=== PATIENT | female | born 1955 | race Caucasian/White ===

== ENCOUNTER 2019-07-28 17:54 | Inpatient (IN) | payer MEDICAID ==
[~2019-07-28] VITALS: Ht 165.1 cm; Wt 68.2 kg
[~2019-07-28 17:54] MED LIST: ALBU6.7H9 INH; ATEN25TA PO; MECL-111 PO; SIMV-42 PO; SIMV-45 PO
[2019-07-28 18:37] LABS: BASOPHILS # (AUTO) 0.1 X10'3 (0-0.2); BASOPHILS % (AUTO) 0.7 % (0-1); EOSINOPHILS # (AUTO) 0.3 X10'3 (0-0.9); EOSINOPHILS % (AUTO) 2.7 % (0-6); HEMATOCRIT 36.8 % (35.0-45.0); HEMOGLOBIN 12.2 g/dl (12.0-16.0); LYMPHOCYTES # (AUTO) 2.2 X10'3 (1.1-4.8); LYMPHOCYTES % (AUTO) 24.2 % (21-51); MEAN CORPUSCULAR HEMOGLOBIN 30.3 PG (27.0-31.0); MEAN CORPUSCULAR HGB CONC 33.1 g/dL (33.0-36.5); MEAN CORPUSCULAR VOLUME 91.5 FL (78-98); MEAN PLATELET VOLUME 8.6 FL (7.4-10.4); MONOCYTES # (AUTO) 0.6 X10'3 (0-0.9); MONOCYTES % (AUTO) 6.6 % (2-12); NEUTROPHILS # (AUTO) 6.1 X10'3 (1.8-7.7); NEUTROPHILS % (AUTO) 65.8 % (42-75); PLATELET COUNT 263 X10'3 (140-440); RED BLOOD COUNT 4.02 X10'6 (4.20-5.60); RED CELL DISTRIBUTION WIDTH 13.3 % (11.5-14.5); WHITE BLOOD COUNT 9.3 X10'3 (4.5-11.0)
[2019-07-28 18:46] LABS: ALANINE AMINOTRANSFERASE 11 U/L (12-78); ALBUMIN 3.7 G/DL (3.4-5.0); ALBUMIN/GLOBULIN RATIO 0.8 (1.1-1.5); ALKALINE PHOSPHATASE 75 IU/L (46-116); ANION GAP 7 (8-16); ASPARTATE AMINO TRANSFERASE 16 U/L (10-37); BILIRUBIN,TOTAL 0.4 MG/DL (0.1-1.0); BLOOD UREA NITROGEN 52 MG/DL (7-18); BUN/CREATININE RATIO 13.3 (6.6-38.0); CALCIUM 9.6 MG/DL (8.5-10.1); CHLORIDE 103 MMOL/L (99-107); CREATININE 3.91 MG/DL (0.40-0.90); GLUCOSE 88 MG/DL (70-104); POTASSIUM 4.4 MMOL/L (3.5-5.1); SODIUM 137 MMOL/L (135-145); TOTAL CARBON DIOXIDE 26.7 MMOL/L (24-32); TOTAL PROTEIN 8.2 G/DL (6.4-8.2); eGFR 12 ML/MIN
[2019-07-28] MEDS ORDERED: aspirin 81mg tab.chew PO ONE (18:55)
[2019-07-28] MEDS ORDERED: enoxaparin 100mg/ml syringe SUBCUT ONE (18:55)
[2019-07-28] MEDS ORDERED: nitroGLYCERIN 0.4mg SUBLingual tab SL PRN (18:55)
[2019-07-28] MEDS ORDERED: atorvastatin 20mg tablet PO SCH (19:05)
[2019-07-28] MEDS ORDERED: atorvastatin 20mg tablet PO ONE (19:05)
[2019-07-28] MEDS ORDERED: mag hydrox/Alum hydrox/simeth 30ml oral suspension PO PRN (19:55)
[2019-07-28] MEDS ORDERED: ondansetron/PF 4mg/2ml inj IV PRN (19:55)
[2019-07-28] MEDS ORDERED: magnesium hydroxide 30ml (MOM) UD suspension PO PRN (19:55)
[2019-07-28] MEDS ORDERED: acetaminophen 325mg tablet PO PRN ×2 (19:55)
--- NOTE | 2019-07-28 20:19 | NUR ---
Patient in room ED 11. I have received report from RUTHIE Miller and had the opportunity to ask questions and assume patient care. Awaiting patient arrival to room 3014I.
[2019-07-28 20:30] VITALS: BP 138/83
--- NOTE | 2019-07-28 21:31 | NUR ---
CRITICAL [address] OLIVAS NOTIFIED AND NO NEW ORDERS AT THIS TIME. PLEASE REFER TO CRITICAL RESULTS ON INTERVENTIONS FOR FURTHER DETAIL. WILL CONTINUE TO MONITOR CLOSELY.
[2019-07-28] MEDS: normal saline 1000ml 1,000 ML IV SCH (21:59)
[2019-07-28 23:00] VITALS: BP 106/67
[2019-07-29 01:00] LABS: BASOPHILS % (AUTO) 0.3 % (0-1); EOSINOPHILS # (AUTO) 0.4 X10'3 (0-0.9); EOSINOPHILS % (AUTO) 3.9 % (0-6); HEMATOCRIT 34.7 % (35.0-45.0); HEMOGLOBIN 11.6 g/dl (12.0-16.0); LYMPHOCYTES # (AUTO) 3.1 X10'3 (1.1-4.8); LYMPHOCYTES % (AUTO) 33.1 % (21-51); MEAN CORPUSCULAR HEMOGLOBIN 30.1 PG (27.0-31.0); MEAN CORPUSCULAR HGB CONC 33.4 g/dL (33.0-36.5); MEAN PLATELET VOLUME 8.7 FL (7.4-10.4); MONOCYTES # (AUTO) 0.6 X10'3 (0-0.9); MONOCYTES % (AUTO) 5.9 % (2-12); NEUTROPHILS # (AUTO) 5.3 X10'3 (1.8-7.7); NEUTROPHILS % (AUTO) 56.8 % (42-75); PLATELET COUNT 219 X10'3 (140-440); RED BLOOD COUNT 3.86 X10'6 (4.20-5.60); RED CELL DISTRIBUTION WIDTH 13.4 % (11.5-14.5); WHITE BLOOD COUNT 9.4 X10'3 (4.5-11.0)
--- NOTE | 2019-07-29 01:00 | NUR ---
CRITICAL 6 HR TROPONIN 2.52- TRENDING DOWN FROM 2.87. DR. OLIVAS NOTIFIED AND NO NEW ORDERS AT THIS TIME. PATIENT IS STABLE WITH NO COMPLAINTS OF CP SINCE ADMIT TO FLOOR 07/28 AT 2029. WILL CONTINUE TO MONITOR CLOSELY.
[2019-07-29 01:12] LABS: ALBUMIN 3.3 G/DL (3.4-5.0); ANION GAP 11 (8-16); BLOOD UREA NITROGEN 52 MG/DL (7-18); BUN/CREATININE RATIO 13.8 (6.6-38.0); CALCIUM 9.7 MG/DL (8.5-10.1); CHLORIDE 107 MMOL/L (99-107); CREATININE 3.77 MG/DL (0.40-0.90); GLUCOSE 104 MG/DL (70-104); POTASSIUM 4.8 MMOL/L (3.5-5.1); SODIUM 140 MMOL/L (135-145); TOTAL CARBON DIOXIDE 21.9 MMOL/L (24-32); eGFR 12 ML/MIN
[2019-07-29 02:55] VITALS: BP 123/74
[2019-07-29] MEDS: normal saline 1000ml 1,000 ML IV SCH ×2 (05:54→16:47)
[2019-07-29 06:00] VITALS: BP 110/71
--- NOTE | 2019-07-29 06:25 | NUR ---
Problems reprioritized. Patient report given, questions answered & plan of care reviewed with Praveena RN and RUTHIE Duong.
--- NOTE | 2019-07-29 06:38 | NUR ---
Patient in room PCU 3016A. I have received report from Nathan HENDRICKS and had the opportunity to ask questions and assume patient care.
[2019-07-29] MEDS ORDERED: enoxaparin 100mg/ml syringe SUBCUT SCH (08:00)
[2019-07-29] MEDS ORDERED: atorvastatin 10mg tablet PO SCH ×2 (08:00→11:16)
[2019-07-29] MEDS: aspirin 81mg tablet.DR PO SCH (08:20)
[2019-07-29 08:43] LABS: URINE AMPHETAMINE SCREEN NEGATIVE (Neg); URINE BARBITUATE SCREEN NEGATIVE (Neg); URINE BENZODIAZEPINES SCREEN NEGATIVE (Neg); URINE CANNABINOID SCREEN NEGATIVE (Neg); URINE COCAINE SCREEN NEGATIVE (Neg); URINE METHADONE SCREEN NEGATIVE (Neg); URINE OPIATE SCREEN NEGATIVE (Neg); URINE PHENCYCLIDINE SCREEN NEGATIVE (Neg)
[2019-07-29 10:24] LABS: CHOL/HDL RATIO 5.3 (0.00-4.99); CHOLESTEROL 153 MG/DL (0-200); HDL CHOLESTEROL 29 MG/DL (35-60); LDL CHOLESTEROL 103 MG/DL (50-100); TRIGLYCERIDES 203 MG/DL (20-135)
[2019-07-29 11:00] VITALS: BP 112/73
--- NOTE | 2019-07-29 11:00 | NUR ---
Spoke to Destiny Olivarez regarding possible laborer chicken farm. Patient will not go to laborer chicken farm until tomorrow,07/30. We are to let patient eat and not make NPO until told to by MD Destiny, or cardiology.
[2019-07-29] MEDS: atenolol 25mg tablet PO SCH (11:42)
--- NOTE | 2019-07-29 11:55 | NUR ---
Per Destiny Olivarez, patient will go to poultry hatchery laborer at 6:30 AM on07/30. Pt will be NPO at midnight
--- NOTE | 2019-07-29 12:21 | NUR ---
Paged PICC nurse again for IV placement. Patient has AC fieldstart and is refusing further attempts. Pt is a hard stick and has a very large fear of needles and said she said she would accept further IV attempts with ultrasound guidance from PICC nurse Earlene Kauffman [id number]. When you have time can you please come place PIV in patient? Going to geophysical laboratory supervisor in AM and refusing IV attempt without ultrasound. Thank you!
--- NOTE | 2019-07-29 12:35 | NUR ---
Paged echo for order that was placed by Dr Schrader: "RE Earlene Kohli [id number]. Echo ordered early this AM for pt, wanted to follow up on ETA. Thank you!" Keily called back and will come to echo at 1315.
[2019-07-29 15:00] VITALS: BP 121/76
--- NOTE | 2019-07-29 18:15 | NUR ---
Problems reprioritized. Patient report given, questions answered & plan of care reviewed with Eliecer HENDRICKS.
--- NOTE | 2019-07-29 18:16 | NUR ---
New hire documentation: I have reviewed and agree with all interventions, assessments performed and documented by Rhoda HENDRICKS.
--- NOTE | 2019-07-29 18:19 | NUR ---
Patient in room PCU 3016. I have received report from Praveena HENDRICKS and had the opportunity to ask questions and assume patient care.
[2019-07-29 18:30] VITALS: BP 120/77
[2019-07-29] MEDS: acetylcysteine 200 MG/ml 4ml vial PO SCH (19:43)
[2019-07-29 22:22] VITALS: BP 132/78
[2019-07-30] VITALS (15 sets, daily range): BP systolic 124–160; BP diastolic 66–94
[2019-07-30] MEDS: normal saline 1000ml 1,000 ML IV SCH ×2 (02:45→12:19)
[2019-07-30 05:28] LABS: BASOPHILS # (AUTO) 0.1 X10'3 (0-0.2); BASOPHILS % (AUTO) 0.8 % (0-1); EOSINOPHILS # (AUTO) 0.3 X10'3 (0-0.9); EOSINOPHILS % (AUTO) 4.5 % (0-6); HEMATOCRIT 32.3 % (35.0-45.0); LYMPHOCYTES # (AUTO) 2.4 X10'3 (1.1-4.8); LYMPHOCYTES % (AUTO) 34.1 % (21-51); MEAN CORPUSCULAR HEMOGLOBIN 30.8 PG (27.0-31.0); MEAN CORPUSCULAR VOLUME 90.8 FL (78-98); MEAN PLATELET VOLUME 8.5 FL (7.4-10.4); MONOCYTES # (AUTO) 0.5 X10'3 (0-0.9); MONOCYTES % (AUTO) 7.1 % (2-12); NEUTROPHILS # (AUTO) 3.8 X10'3 (1.8-7.7); NEUTROPHILS % (AUTO) 53.5 % (42-75); PLATELET COUNT 219 X10'3 (140-440); RED BLOOD COUNT 3.56 X10'6 (4.20-5.60); RED CELL DISTRIBUTION WIDTH 13.5 % (11.5-14.5); WHITE BLOOD COUNT 7.2 X10'3 (4.5-11.0)
[2019-07-30 05:38] LABS: ANION GAP 11 (8-16); BLOOD UREA NITROGEN 52 MG/DL (7-18); BUN/CREATININE RATIO 15.3 (6.6-38.0); CALCIUM 9.2 MG/DL (8.5-10.1); CHLORIDE 109 MMOL/L (99-107); GLUCOSE 90 MG/DL (70-104); POTASSIUM 4.8 MMOL/L (3.5-5.1); SODIUM 141 MMOL/L (135-145); TOTAL CARBON DIOXIDE 21.3 MMOL/L (24-32); eGFR 14 ML/MIN
[2019-07-30] MEDS ORDERED: LIDOcaine 1% (10mg/ml)w/preservative injection 20ml MDV ONE (06:06)
[2019-07-30] MEDS ORDERED: iohexol 350MG/ML 100ml bottle IV ONE (06:06)
[2019-07-30] MEDS ORDERED: midazolam 2 mg/2 ml injection ONE ×2 (06:06→06:32)
[2019-07-30] MEDS ORDERED: fentaNYL/PF 50MCG/1 ML 2ML syringe ONE (06:06)
--- NOTE | 2019-07-30 06:26 | NUR ---
Problems reprioritized. Patient report given, questions answered & plan of care reviewed with Paige RN.
--- NOTE | 2019-07-30 06:26 | NUR ---
[place] documentation: I have reviewed and agree with all interventions, assessments performed and documented by Eliecer HENDRICKS.
[2019-07-30] MEDS ORDERED: heparin 1,000unit/ml 10ml vial 10 ML ONE (06:43)
--- NOTE | 2019-07-30 06:43 | NUR ---
Patient in room PCU 3020. I have received report from Eliecer RN and RUTHIE Snigh and had the opportunity to ask questions and assume patient care.
[2019-07-30] MEDS ORDERED: ticagrelor 90mg tablet ONE (06:51)
[2019-07-30] MEDS: aspirin 81mg tablet.DR PO SCH (08:00)
[2019-07-30] MEDS ORDERED: HYDROcodone/acetaminophen 5mg/325mg tablet PO PRN (08:15)
--- NOTE | 2019-07-30 08:19 | NUR ---
ASA held due to post catheterization
[2019-07-30] MEDS ORDERED: proCHLORperazine 10 MG/2 ml inj IV PRN (08:20)
[2019-07-30] MEDS ORDERED: OXAZEpam 15mg capsule PO PRN (08:20)
[2019-07-30] MEDS ORDERED: HYDROcodone/acetaminophen 10/325mg tab PO PRN (08:20)
[2019-07-30] MEDS: acetylcysteine 200 MG/ml 4ml vial PO SCH ×2 (08:24→19:52)
[2019-07-30] MEDS: atenolol 25mg tablet PO SCH (08:24)
[2019-07-30] MEDS: atorvastatin 10mg tablet PO SCH (08:26)
--- NOTE | 2019-07-30 12:21 | NUR ---
Sent to Dr Childers PAGER ID: [phone] MESSAGE: RE: Kim Kohli [id number]. Pt states she's having difficulty breathing. O2 sat @ 96% on RA. No PRN breathing Tx. -Paige [phone]
--- NOTE | 2019-07-30 12:58 | NUR ---
Sent to Dr Childers PAGER ID: [phone] MESSAGE: RE: Kim Kohli [id number]. RT states she believes the pt may be experiencing anxiety. Also, she has not had any nicotine since admitted. RT does not believe the pt needs albuterol. Please advise. -Paige [phone]
[2019-07-30] MEDS: albuterol 2.5 MG/3 ML nebule NEB PRN (13:04)
[2019-07-30] MEDS ORDERED: LORazepam 0.5 MG tablet PO PRN (13:30)
[2019-07-30] MEDS: nicotine 14mg patch - 24hr TD SCH (13:31)
--- NOTE | 2019-07-30 18:29 | NUR ---
Problems reprioritized. Patient report given, questions answered & plan of care reviewed with RUTHIE Anderson.
[2019-07-30] MEDS: ticagrelor 90mg tablet PO SCH (19:52)
[2019-07-31 03:00] VITALS: BP 121/60
[2019-07-31 05:14] LABS: BASOPHILS # (AUTO) 0.1 X10'3 (0-0.2); EOSINOPHILS # (AUTO) 0.3 X10'3 (0-0.9); EOSINOPHILS % (AUTO) 3.2 % (0-6); HEMOGLOBIN 10.8 g/dl (12.0-16.0); LYMPHOCYTES # (AUTO) 1.7 X10'3 (1.1-4.8); LYMPHOCYTES % (AUTO) 21.2 % (21-51); MEAN CORPUSCULAR HEMOGLOBIN 30.4 PG (27.0-31.0); MEAN CORPUSCULAR HGB CONC 33.8 g/dL (33.0-36.5); MEAN PLATELET VOLUME 8.8 FL (7.4-10.4); MONOCYTES # (AUTO) 0.5 X10'3 (0-0.9); MONOCYTES % (AUTO) 6.4 % (2-12); NEUTROPHILS # (AUTO) 5.6 X10'3 (1.8-7.7); NEUTROPHILS % (AUTO) 68.2 % (42-75); PLATELET COUNT 219 X10'3 (140-440); RED BLOOD COUNT 3.55 X10'6 (4.20-5.60); RED CELL DISTRIBUTION WIDTH 13.3 % (11.5-14.5); WHITE BLOOD COUNT 8.2 X10'3 (4.5-11.0)
[2019-07-31 05:30] LABS: ALBUMIN 3.1 G/DL (3.4-5.0); ANION GAP 13 (8-16); BLOOD UREA NITROGEN 47 MG/DL (7-18); BUN/CREATININE RATIO 14.5 (6.6-38.0); CALCIUM 9.4 MG/DL (8.5-10.1); CHLORIDE 109 MMOL/L (99-107); CREATININE 3.24 MG/DL (0.40-0.90); GLUCOSE 91 MG/DL (70-104); POTASSIUM 4.7 MMOL/L (3.5-5.1); SODIUM 142 MMOL/L (135-145); TOTAL CARBON DIOXIDE 20.5 MMOL/L (24-32); eGFR 14 ML/MIN
[2019-07-31 06:00] VITALS: BP 138/71
--- NOTE | 2019-07-31 06:12 | NUR ---
Patient in room PCU 3016. I have received report from Lauren HENDRICKS and had the opportunity to ask questions and assume patient care.
--- NOTE | 2019-07-31 06:17 | NUR ---
Problems reprioritized. Patient report given, questions answered & plan of care reviewed with Javon HENDRICKS.
[2019-07-31] MEDS: aspirin 81mg tablet.DR PO SCH (07:15)
[2019-07-31] MEDS: atenolol 25mg tablet PO SCH (07:15)
[2019-07-31] MEDS: ticagrelor 90mg tablet PO SCH (07:15)
[2019-07-31] MEDS: atorvastatin 10mg tablet PO SCH (07:16)
[2019-07-31] MEDS: acetylcysteine 200 MG/ml 4ml vial PO SCH (07:16)
[2019-07-31] MEDS: nicotine 14mg patch - 24hr TD SCH (07:16)
[2019-07-31] MEDS: normal saline 1000ml 1,000 ML IV SCH (07:27)
[2019-07-31] MEDS: albuterol 2.5 MG/3 ML nebule NEB PRN (07:50)
[2019-07-31] MEDS ORDERED: ATOR10TA PO (10:51)
[2019-07-31] MEDS ORDERED: NITR0.4T51 SL (10:51)
[2019-07-31] MEDS ORDERED: NICO-631 TD (10:51)
[2019-07-31] MEDS ORDERED: ASPI-1071 PO (10:51)
[2019-07-31] MEDS ORDERED: TICA90TA PO (10:51)
--- NOTE | 2019-07-31 12:28 | NUR ---
Pt is stable for discharge per md order, Discharge instructions reviewed w/ pt and all questions answered, new med prescription called in to [facility], pt refused to have us set up follow up appt and will call herself, Tele monitor 37 removed and returned, PIV dc'ed and clean dry dressing in place, Pt is discharged at 1210 from unit, wheeled down to lobby with hospital staff, pt discharged to home w/ family in private vehicle, all belongings w/ pt at time of discharge.
== END 2019-07-31 12:10 | disposition home or self-care (01) | DRG 174 ==
LOC: ER 17:55 → ED HOLD 20:01 → PCU 3S 20:25
PROVIDERS: ADMIT Hospitalist; ATTEND Family Medicine
PROC: 4A023N7 Measurement of Cardiac Sampling and Pressure, Left Heart, Percutaneous Approach (ICD-10-PCS; principal; 2019-07-30)
PROC: 027034Z Dilation of Coronary Artery, One Artery with Drug-eluting Intraluminal Device, Percutaneous Approach (ICD-10-PCS; 2019-07-30)
PROC: B2111ZZ Fluoroscopy of Multiple Coronary Arteries using Low Osmolar Contrast (ICD-10-PCS; 2019-07-30)
PROC: B2151ZZ Fluoroscopy of Left Heart using Low Osmolar Contrast (ICD-10-PCS; 2019-07-30)
DX: I21.4 Non-ST elevation (NSTEMI) myocardial infarction (principal); N18.4 Chronic kidney disease, stage 4 (severe); E78.5 Hyperlipidemia, unspecified; F17.210 Nicotine dependence, cigarettes, uncomplicated; I12.9 Hypertensive chronic kidney disease with stage 1 through stage 4 chronic kidney disease, or unspecified chronic kidney disease; J44.9 Chronic obstructive pulmonary disease, unspecified; K21.9 Gastro-esophageal reflux disease without esophagitis; Z79.899 Other long term (current) drug therapy; Z88.8 Allergy status to other drugs, medicaments and biological substances; Z71.6 Tobacco abuse counseling
CPT/HCPCS: 36415; 71045; 80048; 80053; 80061; 80305; 84484; 85025; 87081; 93005; 93306; 93458; 94640; 94760; 96372; 99152; 99153; 99285; A4620; A6258; C1725; C1760; C1769; C1874; C9600; G0378; J1644; J1650; J2001; J2250; J3010; J7030; Q9967

== ENCOUNTER 2021-08-15 11:07 | Emergency (ER) | payer MEDICAID ==
[~2021-08-15] VITALS: Ht 165.1 cm; Wt 61.8 kg
[~2021-08-15 11:07] MED LIST changes: -ALBU6.7H9 INH; +ASPI-1071 PO; +ATOR10TA PO; -MECL-111 PO; +MECL-159 PO; +NICO-631 TD; +NITR0.4T51 SL; -SIMV-42 PO; -SIMV-45 PO; +TICA90TA PO
[2021-08-15 11:22] VITALS: BP 134/80
[2021-08-15 14:07] LABS: BASOPHILS # (AUTO) 0.1 X10'3 (0-0.2); BASOPHILS % (AUTO) 1.4 % (0-1); EOSINOPHILS # (AUTO) 0.4 X10'3 (0-0.9); EOSINOPHILS % (AUTO) 5.5 % (0-6); HEMATOCRIT 36.9 % (35.0-45.0); HEMOGLOBIN 12.1 g/dl (12.0-16.0); LYMPHOCYTES % (AUTO) 26.2 % (21-51); MEAN CORPUSCULAR HEMOGLOBIN 30.4 PG (27.0-31.0); MEAN CORPUSCULAR HGB CONC 32.7 g/dL (33.0-36.5); MEAN CORPUSCULAR VOLUME 92.8 FL (78-98); MEAN PLATELET VOLUME 7.5 FL (7.4-10.4); MONOCYTES # (AUTO) 0.6 X10'3 (0-0.9); MONOCYTES % (AUTO) 8.5 % (2-12); NEUTROPHILS # (AUTO) 4.4 X10'3 (1.8-7.7); NEUTROPHILS % (AUTO) 58.4 % (42-75); PLATELET COUNT 305 X10'3 (140-440); RED BLOOD COUNT 3.98 X10'6 (4.20-5.60); RED CELL DISTRIBUTION WIDTH 14.2 % (11.5-14.5); WHITE BLOOD COUNT 7.5 X10'3 (4.5-11.0)
[2021-08-15 14:38] LABS: ALANINE AMINOTRANSFERASE 14 U/L (12-78); ALBUMIN 3.7 G/DL (3.4-5.0); ALBUMIN/GLOBULIN RATIO 0.8 (1.1-1.5); ALKALINE PHOSPHATASE 83 IU/L (46-116); ANION GAP 7 (8-16); ASPARTATE AMINO TRANSFERASE 13 U/L (10-37); BILIRUBIN,TOTAL 0.4 MG/DL (0.1-1.0); BLOOD UREA NITROGEN 45 MG/DL (7-18); BUN/CREATININE RATIO 10.7 (6.6-38.0); CALCIUM 9.5 MG/DL (8.5-10.1); CHLORIDE 106 MMOL/L (99-107); GLUCOSE 96 MG/DL (70-104); POTASSIUM 5.3 MMOL/L (3.5-5.1); SODIUM 139 MMOL/L (135-145); TOTAL CARBON DIOXIDE 25.7 MMOL/L (24-32); TOTAL PROTEIN 8.4 G/DL (6.4-8.2); eGFR 11 ML/MIN
--- NOTE | 2021-08-15 14:50 | NUR ---
Pt given and understands d/c instructions. Ambulatory with a steady gait.
== END 2021-08-15 14:50 | disposition home or self-care (01) ==
LOC: ER 11:07
DX: K92.1 Melena (principal); I11.9 Hypertensive heart disease without heart failure; K21.9 Gastro-esophageal reflux disease without esophagitis; J44.9 Chronic obstructive pulmonary disease, unspecified; F17.210 Nicotine dependence, cigarettes, uncomplicated; Z88.6 Allergy status to analgesic agent; Z79.899 Other long term (current) drug therapy
CPT/HCPCS: 36415; 80053; 85025; 99283

== ENCOUNTER 2023-04-30 13:48 | Emergency (ER) | payer MEDICARE, MEDICAID ==
[~2023-04-30] VITALS: Ht 165.1 cm; Wt 60.8 kg
[2023-04-30 13:49] VITALS: BP 124/94; PULSE 79; RESP 16; TEMP 98; O2SAT 93
[2023-04-30] MEDS ORDERED: HYDR-3965 PO (15:16)
== END 2023-04-30 15:26 | disposition home or self-care (01) ==
LOC: ER 13:49
DX: S93.691A Other sprain of right foot, initial encounter (principal); I11.0 Hypertensive heart disease with heart failure; K21.9 Gastro-esophageal reflux disease without esophagitis; J44.9 Chronic obstructive pulmonary disease, unspecified; F17.200 Nicotine dependence, unspecified, uncomplicated; X58.XXXA Exposure to other specified factors, initial encounter; Y93.89 Activity, other specified; Y92.89 Other specified places as the place of occurrence of the external cause; Y99.8 Other external cause status
CPT/HCPCS: 73630; 99283